=== PATIENT | male | born 1990 | race Caucasian/White ===

== ENCOUNTER 2019-09-29 18:50 | Emergency (ER) | payer OTHER ==
[~2019-09-29] VITALS: Ht 177.8 cm; Wt 68.0 kg
[2019-09-29 19:05] VITALS: BP 131/86
--- NOTE | 2019-09-29 19:08 | NUR ---
TO LOBBY A/W BED AMBULATORY
--- NOTE | 2019-09-29 19:34 | NUR ---
RECIVED REPORT FROM AMY YOUNG.
--- NOTE | 2019-09-29 19:34 | NUR ---
PT AMBULATED TO ER BED 06
--- NOTE | 2019-09-29 19:35 | NUR ---
PT 28 Y/O MALE BIB SELF FOR C/O 05/10 RUQ ABD PAIN RADIATING TO R FLANK X 45 DAYS. PT STATES HE ALSO NOTED BRIGHT RED BLOOD IN STOOL. ADMITS TO N/V X 1 EPISODE YESTERDAY. PT DENIES ANY COUGH, AFEBRILE. REPIRATIONS ARE EVEN AND UNLABORED SKIN IS WARM AND DRY TO TOUCH. BED IN LOWEST POSITION, AND LOCKED IN PLACE. MEDHX: ASTHMA, SIATICA ALLERGIES: IBUPROFEN RX: OXYCODONE, TIZANIDINE
--- NOTE | 2019-09-29 19:50 | NUR ---
PT TAKED TO CT IN W/C PT AMBULATED TO W/C WITH STEADY GAIT UNASSISTED.
--- NOTE | 2019-09-29 20:05 | NUR ---
PT RETURNED FROM CT.
--- NOTE | 2019-09-29 20:13 | NUR ---
DR. KEITH AT [facility].
--- NOTE | 2019-09-29 20:45 | NUR ---
Patient discharged with v/s stable. Written and verbal after care instructions given and explained. Patient alert, oriented and verbalized understanding of instructions. Ambulatory with steady gait. All questions addressed prior to discharge. ID band removed. Patient advised to follow up with PMD. Rx of SENOKOT given. Patient educated on indication of medication including possible reaction and side effects. Opportunity to ask questions provided and answered.
[2019-09-29 20:54] VITALS: BP 131/86
== END 2019-09-29 20:45 | disposition home or self-care (01) ==
LOC: MED 18:50
DX: R10.31 Right lower quadrant pain (principal); R11.10 Vomiting, unspecified; J45.909 Unspecified asthma, uncomplicated; Z88.6 Allergy status to analgesic agent
CPT/HCPCS: 99284